=== PATIENT | male | born 1990 | race Caucasian/White ===

== ENCOUNTER 2021-01-27 19:42 | Emergency (ER) | payer MEDICAID, SELFPAY ==
--- NOTE | ~2021-01-27 | CT_ITS ---
EXAMINATION: CT ABDOMEN AND PELVIS WITH CONTRAST CLINICAL INFORMATION: Pancreatitis COMPARISON: None TECHNIQUE: Multidetector volumetric images were obtained from the superior aspect of the liver through the pubic symphysis following administration 85 mL of Omnipaque 350 intravenous contrast. Sagittal and coronal reformatted images were obtained on the technologist's workstation. Oral contrast: No This CT examination was performed using dose optimization techniques as appropriate, variously including the following: *Automated exposure control *Adjustment of mA and/or kV according to patient size (this includes techniques or standardized protocols for targeted exams where dose is matched to indication/reason for exam; i.e. extremities or head) *Use of iterative reconstruction technique DLP: 753 mGy-cm FINDINGS: LUNG BASES: The visualized lung bases are unremarkable. LIVER, GALLBLADDER, AND BILIARY TREE: Diffuse low attenuation of liver parenchyma due to fatty change. Mild hepatomegaly. Right lobe of liver measures 23 cm superior inferior. No focal liver lesion or intrahepatic bile duct dilatation. The gallbladder is unremarkable with no evidence of radiopaque gallstones, gallbladder wall thickening, or obvious pericholecystic inflammatory changes. PANCREAS: Unremarkable. SPLEEN: Unremarkable. ADRENAL GLANDS: Unremarkable. KIDNEYS AND URETERS: The kidneys are normal in size, shape, and attenuation. No hydronephrosis, hydroureter, or calculi seen. No perinephric stranding. 1.5 cm cortical cyst lower pole right kidney. No follow-up imaging is recommended for simple renal cyst. BLADDER: Unremarkable. GASTROINTESTINAL TRACT: The small and large bowel are unremarkable. The appendix is unremarkable. ABDOMINAL WALL: No significant hernia is appreciated. LYMPH NODES: Normal. VASCULAR: Unremarkable. PELVIC VISCERA: Unremarkable. OSSEOUS STRUCTURES: Unremarkable. CT/CT abdomen pelvis w con IMPRESSION: 1. No acute abnormality the abdomen or pelvis. 2. Mild hepatomegaly with diffuse fatty change of liver.
[2021-01-27 20:00] VITALS: BP 143/87; PULSE 89; RESP 20; TEMP 36.7; O2SAT 96; BMI 28.8
[2021-01-27 20:48] LABS: MANUAL DIFF FLAG NO
[2021-01-27 20:50] LABS: Basophils Percent Auto 0.4 % (0-2); Eosinophils Absolute Auto 0.1 X10*3/uL (0.0-0.4); Eosinophils Percent Auto 1.1 % (0-4); Hematocrit 46.3 % (42-52); Hemoglobin 16.8 g/dl (14.0-18.0); Imm Gran Abs Auto 0.03 X10*3/uL (0.00-0.03); Imm Gran Pct Auto 0.3 % (0.0-0.4); Lymphocytes Absolute Auto 3.4 X10*3/uL (1.2-4.9); Lymphocytes Percent Auto 31.1 % (20-40); Mean Corpuscular HGB Conc 36.3 g/dl (31.0-36.0); Mean Corpuscular Hemoglobin 29.8 pg (27.0-33.0); Mean Corpuscular Volume 82.2 fL (80-98); Mean Platelet Volume 9.4 fL (9.4-12.4); Monocytes Absolute Auto 0.7 X10*3/uL (0.1-1.2); Monocytes Percent Auto 6.8 % (2-11); Neutrophils Absolute Auto 6.5 X10*3/uL (2.0-8.3); Neutrophils Percent Auto 60.3 % (45-73); Platelet Count 275 X10*3/uL (160-400); Red Blood Count 5.63 X10*6/uL (4.60-5.80); Red Cell Distribution Width 11.7 % (11.0-16.0); White Blood Count 10.8 X10*3/uL (4.8-10.8)
[2021-01-27 20:52] LABS: Glucose Urine UA >=1000 MG/DL (NEG); Leukocyte Esterase Urine NEG (NEG); Nitrite Urine NEG (NEG); Specific Gravity - Urine <= 1.005 (1.005-1.025); Urine Blood NEG (NEG); Urine Ketones 15 MG/DL (NEG); Urine Protein NEG (NEG-TRACE)
[2021-01-27 20:53] LABS: Appearance Urine CLEAR; Color Urine STRAW
--- NOTE | 2021-01-27 21:17 | ED.GENADULT ---
HPI - General Adult General Chief complaint: General Medical Stated complaint: Weakness Time Seen by Provider: 01/27/21 21:17 Source: patient Mode of arrival: ambulatory Limitations: no limitations History of Present Illness HPI narrative: Patient with no significant past medical history for 1 week patient has been feeling nauseated ,vomiting frequently, feeling weak tired with frequent urination. No fever no chills no significant abdominal pain patient does have a family history of diabetes but patient never been diagnosed with diabetes ,patient is feeling tired and exhausted with malaise Related Data Allergies Allergy/AdvReac Type Severity Reaction Status Date / Time No Known Allergies Allergy Unverified 04/01/20 17:16 [No Known Allergies*] Review of Systems Review of Systems: Yes all other systems are reviewed and are negative [facility] Past Medical History Medical History No known health problems Social History Social History Advance Directives: No Advance Directives Information Provided: Yes Physical Exam Vital Signs: Vital Signs: Last Vital Signs Temp 98.0 F 01/27/21 20:00 Pulse 70 01/27/21 23:39 Resp 24 H 01/27/21 23:39 BP 147/83 H 01/27/21 23:39 Pulse Ox 97 01/27/21 23:39 Body Mass Index 28.8 Appearance: Alert. Oriented X3. No acute distress. Eyes: PERRLA, No Nystagmus ENT: Pharynx normal. Oral Mucosa moist Neck: Normal inspection. Neck supple. CVS: Normal heart rate and rhythm. Pulses normal. Respiratory: No respiratory distress. Equal air entry bilateral, no wheezing/rales/rhonchi Abdomen: Soft and nontender. Bowel sounds are present, no mass palpable, no CVA tenderness Skin: Skin warm and dry. Normal skin color. Normal skin turgor. Extremities: No lower extremity edema. No calf tenderness Neuro: Oriented X 3. No motor deficit. 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 Result diagrams: 01/27/21 20:44 01/28/21 00:12 Labs: Lab Results 01/27/21 01/27/21 01/27/21 Range/Units 20:41 20:44 20:44 WBC 10.8 (4.8-10.8) X10*3/uL RBC 5.63 (4.60-5.80) X10*6/uL Hgb 16.8 (14.0-18.0) g/dl Hct 46.3 (42-52) % MCV 82.2 (80-98) fL MCH 29.8 (27.0-33.0) pg MCHC 36.3 H (31.0-36.0) g/dl RDW 11.7 (11.0-16.0) % Plt Count 275 (160-400) X10*3/uL MPV 9.4 (9.4-12.4) fL Immature Gran % (Auto) 0.3 (0.0-0.4) % Neut % (Auto) 60.3 (45-73) % Lymph % (Auto) 31.1 (20-40) % [place] % (Auto) 6.8 (2-11) % Eos % (Auto) 1.1 (0-4) % Baso % (Auto) 0.4 (0-2) % Lymph # (Auto) 3.4 (1.2-4.9) X10*3/uL [place] # (Auto) 0.7 (0.1-1.2) X10*3/uL Eos # (Auto) 0.1 (0.0-0.4) X10*3/uL Baso # (Auto) 0.0 (0.0-0.2) X10*3/uL Abs Immat Gran (auto) 0.03 (0.00-0.03) X10*3/uL Absolute Neuts (auto) 6.5 (2.0-8.3) X10*3/uL Absolute Nucleated RBC 0.000 (0.0-0.012) X10*3/uL Nucleated RBC % (auto) 0.0 (0.0-0.2) /100WBC Sodium 129 L (135-145) mmol/L Potassium 4.0 (3.3-5.1) mmol/L Chloride 90 L (96-108) mmol/L Carbon Dioxide 23 (22-29) mmol/L Anion Gap 20 (12-20) BUN 8 L (9-16) mg/dL Creatinine 1.06 (0.5-1.4) mg/dL Estim Creat Clear Calc 106.8 Estimated GFR > 60 POC Glucose (60-115) mg/dL Random Glucose 572 H* (60-115) mg/dL Calcium 10.2 (8.4-10.2) mg/dL Total Bilirubin 0.7 (0.0-1.0) mg/dL Direct Bilirubin 0.3 (0.0-0.5) mg/dL AST 27 (5-37) U/L ALT 39 (0-40) U/L Alkaline Phosphatase 120 H (39-117) U/L Total Protein 8.1 H (6.5-8.0) g/dL Albumin 4.7 (3.5-5.0) g/dL Lipase 151 H (8-78) U/L Urine Color STRAW Urine Appearance CLEAR Urine pH 7.0 (5.0-8.0) Ur Specific [place] <= 1.005 (1.005-1.025) Urine Protein NEG (NEG-TRACE) MG/DL Urine Glucose (UA) >=1000 H (NEG) MG/DL Urine Ketones 15 (NEG) MG/DL Urine Blood NEG (NEG) Urine Nitrite NEG (NEG) Ur Leukocyte Esterase NEG (NEG) Urine RBC 0-2 (0) /HPF Urine WBC 0-2 (0-4) /HPF Ur Squamous Epith Cells NONE /LPF Urine Bacteria TRACE /LPF Acetone, Qual Negative (Negative) COVID-19 (GEMINI) (Negative) COVID-19 Clin Com 01/27/21 01/27/21 01/27/21 Range/Units 22:19 23:05 23:58 WBC (4.8-10.8) X10*3/uL RBC (4.60-5.80) X10*6/uL Hgb (14.0-18.0) g/dl Hct (42-52) % MCV (80-98) fL MCH (27.0-33.0) pg MCHC (31.0-36.0) g/dl RDW (11.0-16.0) % Plt Count (160-400) X10*3/uL MPV (9.4-12.4) fL Immature Gran % (Auto) (0.0-0.4) % Neut % (Auto) (45-73) % Lymph % (Auto) (20-40) % [place] % (Auto) (2-11) % Eos % (Auto) (0-4) % Baso % (Auto) (0-2) % Lymph # (Auto) (1.2-4.9) X10*3/uL [place] # (Auto) (0.1-1.2) X10*3/uL Eos # (Auto) (0.0-0.4) X10*3/uL Baso # (Auto) (0.0-0.2) X10*3/uL Abs Immat Gran (auto) (0.00-0.03) X10*3/uL Absolute Neuts (auto) (2.0-8.3) X10*3/uL Absolute Nucleated RBC (0.0-0.012) X10*3/uL Nucleated RBC % (auto) (0.0-0.2) /100WBC Sodium (135-145) mmol/L Potassium (3.3-5.1) mmol/L Chloride (96-108) mmol/L Carbon Dioxide (22-29) mmol/L Anion Gap (12-20) BUN (9-16) mg/dL Creatinine (0.5-1.4) mg/dL Estim Creat Clear Calc Estimated GFR POC Glucose 416 H* 334 H (60-115) mg/dL Random Glucose (60-115) mg/dL Calcium (8.4-10.2) mg/dL Total Bilirubin (0.0-1.0) mg/dL Direct Bilirubin (0.0-0.5) mg/dL AST (5-37) U/L ALT (0-40) U/L Alkaline Phosphatase (39-117) U/L Total Protein (6.5-8.0) g/dL Albumin (3.5-5.0) g/dL Lipase (8-78) U/L Urine Color Urine Appearance Urine pH (5.0-8.0) Ur Specific [place] (1.005-1.025) Urine Protein (NEG-TRACE) MG/DL Urine Glucose (UA) (NEG) MG/DL Urine Ketones (NEG) MG/DL Urine Blood (NEG) Urine Nitrite (NEG) Ur Leukocyte Esterase (NEG) Urine RBC (0) /HPF Urine WBC (0-4) /HPF Ur Squamous Epith Cells /LPF Urine Bacteria /LPF Acetone, Qual (Negative) COVID-19 (GEMINI) Negative (Negative) COVID-19 Clin Com See Note 01/28/21 Range/Units 00:12 WBC (4.8-10.8) X10*3/uL RBC (4.60-5.80) X10*6/uL Hgb (14.0-18.0) g/dl Hct (42-52) % MCV (80-98) fL MCH (27.0-33.0) pg MCHC (31.0-36.0) g/dl RDW (11.0-16.0) % Plt Count (160-400) X10*3/uL MPV (9.4-12.4) fL Immature Gran % (Auto) (0.0-0.4) % Neut % (Auto) (45-73) % Lymph % (Auto) (20-40) % [place] % (Auto) (2-11) % Eos % (Auto) (0-4) % Baso % (Auto) (0-2) % Lymph # (Auto) (1.2-4.9) X10*3/uL [place] # (Auto) (0.1-1.2) X10*3/uL Eos # (Auto) (0.0-0.4) X10*3/uL Baso # (Auto) (0.0-0.2) X10*3/uL Abs Immat Gran (auto) (0.00-0.03) X10*3/uL Absolute Neuts (auto) (2.0-8.3) X10*3/uL Absolute Nucleated RBC (0.0-0.012) X10*3/uL Nucleated RBC % (auto) (0.0-0.2) /100WBC Sodium 134 L (135-145) mmol/L Potassium 3.3 (3.3-5.1) mmol/L Chloride 98 (96-108) mmol/L Carbon Dioxide 23 (22-29) mmol/L Anion Gap 16 (12-20) BUN 7 L (9-16) mg/dL Creatinine 0.82 (0.5-1.4) mg/dL Estim Creat Clear Calc 136.8 Estimated GFR > 60 POC Glucose (60-115) mg/dL Random Glucose 332 H D (60-115) mg/dL Calcium 8.9 D (8.4-10.2) mg/dL Total Bilirubin (0.0-1.0) mg/dL Direct Bilirubin (0.0-0.5) mg/dL AST (5-37) U/L ALT (0-40) U/L Alkaline Phosphatase (39-117) U/L Total Protein (6.5-8.0) g/dL Albumin (3.5-5.0) g/dL Lipase (8-78) U/L Urine Color Urine Appearance Urine pH (5.0-8.0) Ur Specific [place] (1.005-1.025) Urine Protein (NEG-TRACE) MG/DL Urine Glucose (UA) (NEG) MG/DL Urine Ketones (NEG) MG/DL Urine Blood (NEG) Urine Nitrite (NEG) Ur Leukocyte Esterase (NEG) Urine RBC (0) /HPF Urine WBC (0-4) /HPF Ur Squamous Epith Cells /LPF Urine Bacteria /LPF Acetone, Qual Negative (Negative) COVID-19 (GEMINI) (Negative) COVID-19 Clin Com
[2021-01-27 21:22] LABS: Alanine Aminotransferase 39 U/L (0-40); Albumin Level 4.7 g/dL (3.5-5.0); Alkaline Phosphatase 120 U/L (39-117); Anion Gap 20 (12-20); Aspartate Amino Transferase 27 U/L (5-37); Bilirubin Direct 0.3 mg/dL (0.0-0.5); Bilirubin Total 0.7 mg/dL (0.0-1.0); Blood Urea Nitrogen 8 mg/dL (9-16); Calcium 10.2 mg/dL (8.4-10.2); Carbon Dioxide 23 mmol/L (22-29); Chloride 90 mmol/L (96-108); Creatinine Clr Calc Pharmacy 106.8; Estimated Glomerular Filt Rate > 60; Glucose Random 572 mg/dL (60-115); Sodium 129 mmol/L (135-145); Total Protein 8.1 g/dL (6.5-8.0)
[2021-01-27] MEDS: 0.9 % Sodium Chloride 1,000 ML 999 ML IVCONT ×2 (21:29→23:16)
[2021-01-27] MEDS: ondansetron HCL 4 MG/2 ML VIAL IVPUSH (21:32)
[2021-01-27 21:35] LABS: Lipase 151 U/L (8-78)
[2021-01-27 21:52] LABS: Bacteria Urine TRACE /LPF; RBC Urine 0-2 /HPF (0); WBC Urine 0-2 /HPF (0-4)
[2021-01-27 22:44] LABS: COVID-19 Test Negative (Negative)
[2021-01-27 23:09] LABS: Glucose, Whole Blood 416 mg/dL (60-115)
[2021-01-27 23:12] LABS: Acetone, serum QL Negative (Negative)
[2021-01-27] MEDS: Insulin Lispro 100 UNIT/ML 3 ML VIAL 14 UNIT SUBCUT (23:16)
[2021-01-27 23:39] VITALS: BP 147/83; PULSE 70; RESP 24; O2SAT 97
[2021-01-28 00:03] LABS: Glucose, Whole Blood 334 mg/dL (60-115)
[2021-01-28 00:32] LABS: Acetone, serum QL Negative (Negative)
[2021-01-28 00:40] LABS: Anion Gap 16 (12-20); Blood Urea Nitrogen 7 mg/dL (9-16); Calcium 8.9 mg/dL (8.4-10.2); Carbon Dioxide 23 mmol/L (22-29); Chloride 98 mmol/L (96-108); Creatinine Clr Calc Pharmacy 136.8; Estimated Glomerular Filt Rate > 60; Glucose Random 332 mg/dL (60-115); Potassium 3.3 mmol/L (3.3-5.1); Sodium 134 mmol/L (135-145)
[2021-01-28] MEDS: metFORMIN HCl 1,000 MG TABLET 1000 MG PO (01:17)
== END 2021-01-28 01:31 | disposition home or self-care (01) ==
PROVIDERS: Emergency Provider Internal Medicine
DX: E11.9 Type 2 diabetes mellitus without complications (principal); Z20.822 Contact with and (suspected) exposure to COVID-19
CPT/HCPCS: 36415; 74177; 80048; 80076; 81001; 82009; 82947; 83690; 85025; 87635; 96361; 96374; 99284; J2405

== ENCOUNTER 2022-09-13 14:11 | Inpatient (IN) | payer MEDICAID, SELFPAY ==
--- NOTE | ~2022-09-13 | CT_ITS ---
EXAMINATION: CT MAXILLOFACIAL WITH CONTRAST CLINICAL INFORMATION: Facial swelling. COMPARISON: None available. TECHNIQUE: Multidetector helical imaging was performed in the axial plane without and following the administration of 85 mL of Omnipaque 350 intravenous contrast. Generation of coronal and sagittal reformatted images. This CT examination was performed using dose optimization techniques as appropriate, variously including the following: *Automated exposure control *Adjustment of mA and/or kV according to patient size (this includes techniques or standardized protocols for targeted exams where dose is matched to indication/reason for exam; i.e. extremities or head) *Use of iterative reconstruction technique DLP: 895 mGy-cm FINDINGS: FRONTAL SINUSES AND DRAINAGE PATHWAYS: The frontal sinuses are clear. The frontoethmoidal recesses are patent. MAXILLARY SINUSES AND DRAINAGE PATHWAYS: Mild mucosal thickening of atelectatic right maxillary sinus. Minimal mucosal thickening of the left maxillary sinus.. The maxillary ostia and infundibula are patent. ETHMOID SINUSES: Mild mucosal thickening of ethmoid air cells. The ethmoid roofs appear symmetric and intact. SPHENOID SINUS AND DRAINAGE PATHWAYS: The sphenoid sinus is clear. Changes of arrested pneumatization of the sphenoid base. The sphenoethmoidal recesses are patent. The carotid canals are normally covered by bone. NASAL PASSAGE: Mild mucosal thickening of the nasal passage. Moderate leftward nasal septal deviation. Dehiscence of the cartilaginous nasal septum. ORBITS: Normal appearance of the osseous orbits. The lamina papyracea are intact. No significant preseptal or retrobulbar edema. Normal appearance of the globes. Normal symmetric appearance of the extraocular musculature. No abnormalities of the intraconal or extraconal adipose tissue. Normal appearance of the optic nerve sheaths. Normal appearance of the lacrimal glands. No orbital fluid collections. No abnormalities of the orbital apices. TEMPOROMANDIBULAR JOINTS: The temporomandibular joints remain well aligned. Normal appearance of the temporomandibular joints. ADDITIONAL RELEVANT FINDINGS: Multifocal maxillary and mandibular odontogenic enamel erosions with periapical lucencies associated with the mandibular right 2nd premolar and 1st molar. There is an adjacent peripherally enhancing fluid collection along the vertebral the right body of the mandible, measuring up to 1 x 0.3 cm. Moderate surrounding subcutaneous edema throughout the right side of face extending into the right anterior neck. Moderate edematous thickening of the right aspect of the platysma muscle. No additional drainable fluid collection within the deep soft tissues moderately prominent rounded right level Ia lymph nodes measuring up to 1 cm, right level Ib lymph nodes measuring up to 2 cm, right level IIa lymph nodes measuring up to 1.7 cm, and right level III lymph nodes measuring up to 1.2 cm. No evidence of maxillofacial bone fractures. The zygomatic arches remain intact. No nasal bone fracture. No evidence of mandibular or maxillary fracture. The visualized mastoid air cells and middle ear cavities remain well aerated. Limited evaluation of the intracranial structures without significant abnormalities. Straightening of the normal cervical lordosis. Mild degenerative anterolisthesis of C3 on C4. Moderate degenerative disc disease from C3-C7. The premaxillary, retromaxillary, pterygopalatine fossa, temporal fossa, parapharyngeal, and prelaryngeal adipose tissue is maintained. No demonstrated soft tissue abnormalities within the intrinsic tissues of the tongue. CT/CT facial bones w IV con IMPRESSION: 1. Multifocal maxillary and mandibular odontogenic disease. Periapical lucencies associated with the mandibular right 2nd premolar and 1st molar. There is an adjacent 1 x 0.3 cm abscess along the outer table of the right mandibular body. Moderate surrounding soft tissue edema throughout the right side of face extending into the right anterior neck. 2. Prominent right upper cervical chain lymphadenopathy, likely reactive in nature. 3. Dehiscence of the cartilaginous nasal septum. Moderate leftward nasal septal deviation.
[2022-09-13 14:57] VITALS: BP 158/90; PULSE 75; RESP 18; TEMP 36.4; O2SAT 98; BMI 35.7
--- NOTE | 2022-09-13 15:00 | ED.GENADULT ---
HPI - General Adult General Chief complaint: Dental/Oral <Jose A Allen - Last Filed: 09/13/22 15:01> Stated complaint: Dental pain/Facial swelling <Jose A Allen - Last Filed: 09/13/22 15:01> Time Seen by Provider: 09/13/22 20:37 <Jose A Allen - Last Filed: 09/13/22 15:01> Source: patient <Kate Partida NP - Last Filed: 09/14/22 01:36> Mode of arrival: ambulatory <Kate Partida NP - Last Filed: 09/14/22 01:36> Limitations: no limitations <Kate Partida NP - Last Filed: 09/14/22 01:36> History of Present Illness HPI narrative: 32-year-old male presents with right lower tooth, right facial swelling with difficulty swallowing. He states to have poor dentition, started off with a toothache and then progressively worsened. He is able to manage secretions and open his mouth. He does not report any difficulty breathing. <Kate Partida NP - Last Filed: 09/14/22 01:36> Onset (ago): day(s) (5) <Kate Partida NP - Last Filed: 09/14/22 01:36> Location: face and mouth <Kate Partida NP - Last Filed: 09/14/22 01:36> Severity: severe <Kate Partida NP - Last Filed: 09/14/22 01:36> Severity scale (1-10): 10 <Kate Partida NP - Last Filed: 09/14/22 01:36> Quality: aching <Kate Partida NP - Last Filed: 09/14/22 01:36> Pain Consistency: constant <Kate Partida NP - Last Filed: 09/14/22 01:36> Relieving factors: none <Kate Partida NP - Last Filed: 09/14/22 01:36> Exacerbating factors: eating and movement <Kate Partida NP - Last Filed: 09/14/22 01:36> Associated symptoms: fever/chills <Kate Partida NP - Last Filed: 09/14/22 01:36> Treatments prior to arrival: none <Kate Partida NP - Last Filed: 09/14/22 01:36> Related Data Home medications: Previous Rx's Medication Instructions Recorded metformin 850 mg tablet 850 mg PO BID #60 tabs 01/28/21 <Jose A Allen - Last Filed: 09/13/22 15:01> Allergies/adverse reactions: Allergies Allergy/AdvReac Type Severity Reaction Status Date / Time No Known Allergies Allergy Verified 09/13/22 14:57 [No Known Allergies*] <Jose A Allen - Last Filed: 09/13/22 15:01> Review of Systems Review of Systems: Constitutional: No Fever, positive Chills ENT/Mouth: Positive jaw pain, positive facial swelling, No Ear Pain, No Hoarseness, No sore throat Eyes: No Eye Pain, No Swelling, No Redness, No Foreign Body Cardiovascular: No Chest Pain, No SOB Respiratory: No Cough, No Dyspnea Gastrointestinal: No Nausea, No Vomiting, No Diarrhea, No abdominal Pain Genitourinary: No Dysuria, No Hematuria Musculoskeletal: positive jaw pain, No Myalgias, No Joint Swelling Skin: No Skin lacerations, No rash Neuro: No Weakness, No Dizziness, No Headache <Kate Partida NP - Last Filed: 09/14/22 01:36> Yes all other systems are reviewed and are negative <Kate Partida NP - Last Filed: 09/14/22 01:36> PMFSH Past Medical History Attestation statement: The following information was validated with the patient. <Kate Partida NP - Last Filed: 09/14/22 01:36> Source: old records reviewed <Kate Partida NP - Last Filed: 09/14/22 01:36> Medical History: Medical History No known health problems <Jose A Allen - Last Filed: 09/13/22 15:01> Social History Social History: Social History Advance Directives: No Advance Directives Information Provided: No <Jose A Allen - Last Filed: 09/13/22 15:01> Physical Exam ED Vital Signs: Vital Signs - 24 hr 09/13/22 14:57 09/13/22 20:44 09/14/22 00:02 Temperature 97.6 F 99.4 F Pulse Rate 75 81 74 Respiratory Rate 18 20 20 Blood Pressure 158/90 H 139/84 137/74 Pulse Oximetry 98 96 98 Oxygen Delivery Method Room Air Room Air Room Air BMI result Body Mass Index 35.7 <Jose A Allen - Last Filed: 09/13/22 15:01> Vital Signs - 24 hr 09/13/22 14:57 09/13/22 20:44 09/14/22 00:02 Temperature 97.6 F 99.4 F Pulse Rate 75 81 74 Respiratory Rate 18 20 20 Blood Pressure 158/90 H 139/84 137/74 Pulse Oximetry 98 96 98 Oxygen Delivery Method Room Air Room Air Room Air BMI result Body Mass Index 35.7 <Kate Partida NP - Last Filed: 09/14/22 01:36> Vital Signs - 24 hr 09/13/22 14:57 09/13/22 20:44 09/14/22 00:02 Temperature 97.6 F 99.4 F Pulse Rate 75 81 74 Respiratory Rate 18 20 20 Blood Pressure 158/90 H 139/84 137/74 Pulse Oximetry 98 96 98 Oxygen Delivery Method Room Air Room Air Room Air BMI result Body Mass Index 35.7 <Chito Baeza MD - Last Filed: 09/14/22 02:17> Appearance: Alert. Oriented X3. moderate distress. Eyes: Pupils equal, round and reactive to light. ENT: Pharynx normal. Neck: Normal inspection. Neck supple. right-sided cervical Lymphadenopathy noted. CVS: Normal heart rate and rhythm. Pulses normal. Respiratory: No respiratory distress. Breath sounds normal. Skin: Skin warm and dry. Normal skin color. Extremities: No lower extremity edema. Gait balance And coordinated Neuro: No motor deficit. No sensory deficit. cranial nerves 2-12 intact. <Kate Partida NP - Last Filed: 09/14/22 01:36> Course Course Course Narrative: RME- 32-year-old male past medical history significant for diabetes presents for evaluation of right facial swelling. Patient reports that he has a broken right lower tooth that has been bothering him off for quite some time. He reports yesterday it started to swell and this morning was significantly more swollen. On exam he has a markedly edematous right cheek and possible dental abscess. Will check labs. Patient is afebrile, retropharynx is widely patent <Jose A Allen - Last Filed: 09/13/22 15:01> RME- 32-year-old male past medical history significant for diabetes presents for evaluation of right facial swelling. Patient reports that he has a broken right lower tooth that has been bothering him off for quite some time. He reports yesterday it started to swell and this morning was significantly more swollen. On exam he has a markedly edematous right cheek and possible dental abscess. Will check labs. Patient is afebrile, retropharynx is widely patent 20:30 32-year-old male presents with right-sided lower jaw pain and facial swelling for about 5 days. States that he has intermittent chills but no measured fevers. He is having a difficult time swallowing because pain, is able to open and close his mouth. There is significant swelling to the left zygomatic process down to his lower lip. Multiple dental caries noted. Right-sided cervical lymphadenopathy with mastoid tenderness noted. No indication of peritonsillar abscess or epiglottitis. On palpation I do not feel any fluctuance. Will order clindamycin IV, CT facial bones with contrast, lactic and cultures. Pain management with Toradol, patient is on methadone. Patient's white count is 12.0, vital signs are within normal limits with an elevated blood pressure 158/90. High suspicion for dental abscess versus osteomyelitis of the jaw. Low likelihood to be angioedema as it is right-sided and patient is not on any medications with risk for angioedema. No indication of Tomás's angina. Airway is patent. No tracheal stridor. No vertebral tenderness or step-offs. No nuchal rigidity. PERRLA. No extraocular pain on movement. 21:32 lactic acid 3.6. Will call sepsis at this time. Fluid resuscitation at [address] scan pending. 00:36 CT scan Still pending. 2nd culture pending. Patient is sleeping. Even unlabored respirations. Easily arousable with verbal stimulus. 01:02 CT scan still pending. Second lactic is 2.9. Patient sleeping. Even unlabored respirations. 01:21 CT scan still pending. 01:30 CT scan indicates small right mandibular abscess with cellulitis. Sign-out to Dr. Simon, Dr. Simon will attempt to drain the very small dental abscess and then admit for cellulitis. <Kate Partida NP - Last Filed: 09/14/22 01:36> Medications Administered Discontinued Medications Generic Name Dose Route Start Last Admin Trade Name Freq PRN Reason Stop Dose Admin Clindamycin Phosphate 600 mg in 50 mls @ 100 mls/hr 09/13/22 20:47 09/13/22 21:31 Cleocin IV 09/13/22 21:16 Infused ONCE ONE Infusion Sodium Chloride 3,197.82 mls @ 3,197.82 mls/hr 09/13/22 21:33 09/13/22 21:36 Ns 30 ml/kg infuse over 1 hr (3197.82 ml) 09/13/22 22:32 3,197.82 mls/hr IV Administration .Q1H STA Iohexol 100 ml 09/13/22 22:08 09/13/22 22:09 Iohexol 350 Mg/Ml 100 Ml Infus..Btl IV 09/13/22 22:09 85 ml ONCE ONE Administration Ketorolac Tromethamine 30 mg 09/13/22 20:49 09/13/22 20:55 Ketorolac Tromethamine 30 Mg/Ml Vial IVPUSH 09/13/22 20:50 30 mg ONCE ONE Administration <Jose A Allen - Last Filed: 09/13/22 15:01> Medications Administered Discontinued Medications Generic Name Dose Route Start Last Admin Trade Name Freq PRN Reason Stop Dose Admin Clindamycin Phosphate 600 mg in 50 mls @ 100 mls/hr 09/13/22 20:47 09/13/22 21:31 Cleocin IV 09/13/22 21:16 Infused ONCE ONE Infusion Sodium Chloride 3,197.82 mls @ 3,197.82 mls/hr 09/13/22 21:33 09/13/22 21:36 Ns 30 ml/kg infuse over 1 hr (3197.82 ml) 09/13/22 22:32 3,197.82 mls/hr IV Administration .Q1H STA Iohexol 100 ml 09/13/22 22:08 09/13/22 22:09 Iohexol 350 Mg/Ml 100 Ml Infus..Btl IV 09/13/22 22:09 85 ml ONCE ONE Administration Ketorolac Tromethamine 30 mg 09/13/22 20:49 09/13/22 20:55 Ketorolac Tromethamine 30 Mg/Ml Vial IVPUSH 09/13/22 20:50 30 mg ONCE ONE Administration <Kate Partida NP - Last Filed: 09/14/22 01:36> Medications Administered Discontinued Medications Generic Name Dose Route Start Last Admin Trade Name Freq PRN Reason Stop Dose Admin Clindamycin Phosphate 600 mg in 50 mls @ 100 mls/hr 09/13/22 20:47 09/13/22 21:31 Cleocin IV 09/13/22 21:16 Infused ONCE ONE Infusion Sodium Chloride 3,197.82 mls @ 3,197.82 mls/hr 09/13/22 21:33 09/13/22 21:36 Ns 30 ml/kg infuse over 1 hr (3197.82 ml) 09/13/22 22:32 3,197.82 mls/hr IV Administration .Q1H STA Iohexol 100 ml 09/13/22 22:08 09/13/22 22:09 Iohexol 350 Mg/Ml 100 Ml Infus..Btl IV 09/13/22 22:09 85 ml ONCE ONE Administration Ketorolac Tromethamine 30 mg 09/13/22 20:49 09/13/22 20:55 Ketorolac Tromethamine 30 Mg/Ml Vial IVPUSH 09/13/22 20:50 30 mg ONCE ONE Administration <Chito Baeza MD - Last Filed: 09/14/22 02:17> Procedures Abscess I/D Site: other (Mandibular) <Chito Baeza MD - Last Filed: 09/14/22 02:17> Side (if applicable): right <Chito Baeza MD - Last Filed: 09/14/22 02:17> Local Anesthetic: lidocaine 2% and with epi <Chito Baeza MD - Last Filed: 09/14/22 02:17> Amount of anesthesia used (mL): 3 <Chito Baeza MD - Last Filed: 09/14/22 02:17> Technique: needle aspiration <Chito Baeza MD - Last Filed: 09/14/22 02:17> Amount of fluid expressed (mL): 0.5 <Chito Baeza MD - Last Filed: 09/14/22 02:17> Sent for culture/gram staining?: No <Chito Baeza MD - Last Filed: 09/14/22 02:17> Medical Decision Making Differential Diagnosis Differential Diagnoses: The differential diagnosis associated with the presentation includes <Kate Partida NP - Last Filed: 09/14/22 01:36> Facial cellulitis, dental abscess <Kate Partida NP - Last Filed: 09/14/22 01:36> Admission/Observation Consideration of admission/observation: Escalation of care including admission/observation considered <Kate Partida NP - Last Filed: 09/14/22 01:36> patient will be admitted <Kate Partida NP - Last Filed: 09/14/22 01:36> Consult Healthcare Provider Management of the patient was discussed with: Hospitalist <Kate Partida NP - Last Filed: 09/14/22 01:36> Lab Data MDM Lab Attestation statement: I reviewed the patient's lab results. <Kate Partida NP - Last Filed: 09/14/22 01:36> Result Diagrams: 09/13/22 15:46 09/13/22 15:46 <Jose A Allen - Last Filed: 09/13/22 15:01> Labs: Lab Results 09/13/22 09/13/22 09/13/22 Range/Units 15:46 15:46 20:50 WBC 12.0 H (4.8-10.8) X10*3/uL RBC 4.90 (4.60-5.80) X10*6/uL Hgb 14.8 (14.0-18.0) g/dl Hct 42.5 (42.0-52.0) % MCV 86.7 (80.0-98.0) fL MCH 30.2 (27.0-33.0) pg MCHC 34.8 (31.0-36.0) g/dl RDW 12.9 (11.0-16.0) % Plt Count 205 (160-400) X10*3/uL MPV 9.2 L (9.4-12.4) fL Immature Gran % (Auto) 0.6 H (0.0-0.4) % Neut % (Auto) 70.5 (45-73) % Lymph % (Auto) 20.3 (20-40) % Parker % (Auto) 7.3 (2-11) % Eos % (Auto) 1.0 (0-4) % Baso % (Auto) 0.3 (0-2) % Lymph # (Auto) 2.5 (1.2-4.9) X10*3/uL Parker # (Auto) 0.9 (0.1-1.2) X10*3/uL Eos # (Auto) 0.1 (0.0-0.4) X10*3/uL Baso # (Auto) 0.0 (0.0-0.2) X10*3/uL Abs Immat Gran (auto) 0.07 H (0.00-0.03) X10*3/uL Absolute Neuts (auto) 8.5 H (2.0-8.3) x10*3/uL Absolute Nucleated RBC 0.000 (0.0-0.012) X10*3/uL Nucleated RBC % (auto) 0.0 (0.0-0.2) /100WBC Sodium 142 (135-145) mmol/L Potassium 4.2 D (3.3-5.1) mmol/L Chloride 101 (96-108) mmol/L Carbon Dioxide 29 (22-29) mmol/L Anion Gap 16 (12-20) BUN 8 L (9-16) mg/dL Creatinine 0.72 (0.5-1.4) mg/dL Estim Creat Clear Calc 171.1 Estimated GFR > 60 Random Glucose 119 H (60-115) mg/dL Lactic Acid 3.6 H* (0.5-2.0) mmol/L Lactic Acid F/U @ 2Hr (0.5-2.0) mmol/L Calcium 9.5 D (8.4-10.2) mg/dL 09/14/22 Range/Units 00:06 WBC (4.8-10.8) X10*3/uL RBC (4.60-5.80) X10*6/uL Hgb (14.0-18.0) g/dl Hct (42.0-52.0) % MCV (80.0-98.0) fL MCH (27.0-33.0) pg MCHC (31.0-36.0) g/dl RDW (11.0-16.0) % Plt Count (160-400) X10*3/uL MPV (9.4-12.4) fL Immature Gran % (Auto) (0.0-0.4) % Neut % (Auto) (45-73) % Lymph % (Auto) (20-40) % Parker % (Auto) (2-11) % Eos % (Auto) (0-4) % Baso % (Auto) (0-2) % Lymph # (Auto) (1.2-4.9) X10*3/uL Parker # (Auto) (0.1-1.2) X10*3/uL Eos # (Auto) (0.0-0.4) X10*3/uL Baso # (Auto) (0.0-0.2) X10*3/uL Abs Immat Gran (auto) (0.00-0.03) X10*3/uL Absolute Neuts (auto) (2.0-8.3) x10*3/uL Absolute Nucleated RBC (0.0-0.012) X10*3/uL Nucleated RBC % (auto) (0.0-0.2) /100WBC Sodium (135-145) mmol/L Potassium (3.3-5.1) mmol/L Chloride (96-108) mmol/L Carbon Dioxide (22-29) mmol/L Anion Gap (12-20) BUN (9-16) mg/dL Creatinine (0.5-1.4) mg/dL Estim Creat Clear Calc Estimated GFR Random Glucose (60-115) mg/dL Lactic Acid (0.5-2.0) mmol/L Lactic Acid F/U @ 2Hr 2.9 H* (0.5-2.0) mmol/L Calcium (8.4-10.2) mg/dL <Jose A Allen - Last Filed: 09/13/22 15:01> Lab Results 09/13/22 09/13/22 09/13/22 Range/Units 15:46 15:46 20:50 WBC 12.0 H (4.8-10.8) X10*3/uL RBC 4.90 (4.60-5.80) X10*6/uL Hgb 14.8 (14.0-18.0) g/dl Hct 42.5 (42.0-52.0) % MCV 86.7 (80.0-98.0) fL MCH 30.2 (27.0-33.0) pg MCHC 34.8 (31.0-36.0) g/dl RDW 12.9 (11.0-16.0) % Plt Count 205 (160-400) X10*3/uL MPV 9.2 L (9.4-12.4) fL Immature Gran % (Auto) 0.6 H (0.0-0.4) % Neut % (Auto) 70.5 (45-73) % Lymph % (Auto) 20.3 (20-40) % Parker % (Auto) 7.3 (2-11) % Eos % (Auto) 1.0 (0-4) % Baso % (Auto) 0.3 (0-2) % Lymph # (Auto) 2.5 (1.2-4.9) X10*3/uL Parker # (Auto) 0.9 (0.1-1.2) X10*3/uL Eos # (Auto) 0.1 (0.0-0.4) X10*3/uL Baso # (Auto) 0.0 (0.0-0.2) X10*3/uL Abs Immat Gran (auto) 0.07 H (0.00-0.03) X10*3/uL Absolute Neuts (auto) 8.5 H (2.0-8.3) x10*3/uL Absolute Nucleated RBC 0.000 (0.0-0.012) X10*3/uL Nucleated RBC % (auto) 0.0 (0.0-0.2) /100WBC Sodium 142 (135-145) mmol/L Potassium 4.2 D (3.3-5.1) mmol/L Chloride 101 (96-108) mmol/L Carbon Dioxide 29 (22-29) mmol/L Anion Gap 16 (12-20) BUN 8 L (9-16) mg/dL Creatinine 0.72 (0.5-1.4) mg/dL Estim Creat Clear Calc 171.1 Estimated GFR > 60 Random Glucose 119 H (60-115) mg/dL Lactic Acid 3.6 H* (0.5-2.0) mmol/L Lactic Acid F/U @ 2Hr (0.5-2.0) mmol/L Calcium 9.5 D (8.4-10.2) mg/dL 09/14/22 Range/Units 00:06 WBC (4.8-10.8) X10*3/uL RBC (4.60-5.80) X10*6/uL Hgb (14.0-18.0) g/dl Hct (42.0-52.0) % MCV (80.0-98.0) fL MCH (27.0-33.0) pg MCHC (31.0-36.0) g/dl RDW (11.0-16.0) % Plt Count (160-400) X10*3/uL MPV (9.4-12.4) fL Immature Gran % (Auto) (0.0-0.4) % Neut % (Auto) (45-73) % Lymph % (Auto) (20-40) % Parker % (Auto) (2-11) % Eos % (Auto) (0-4) % Baso % (Auto) (0-2) % Lymph # (Auto) (1.2-4.9) X10*3/uL Parker # (Auto) (0.1-1.2) X10*3/uL Eos # (Auto) (0.0-0.4) X10*3/uL Baso # (Auto) (0.0-0.2) X10*3/uL Abs Immat Gran (auto) (0.00-0.03) X10*3/uL Absolute Neuts (auto) (2.0-8.3) x10*3/uL Absolute Nucleated RBC (0.0-0.012) X10*3/uL Nucleated RBC % (auto) (0.0-0.2) /100WBC Sodium (135-145) mmol/L Potassium (3.3-5.1) mmol/L Chloride (96-108) mmol/L Carbon Dioxide (22-29) mmol/L Anion Gap (12-20) BUN (9-16) mg/dL Creatinine (0.5-1.4) mg/dL Estim Creat Clear Calc Estimated GFR Random Glucose (60-115) mg/dL Lactic Acid (0.5-2.0) mmol/L Lactic Acid F/U @ 2Hr 2.9 H* (0.5-2.0) mmol/L Calcium (8.4-10.2) mg/dL <Kate Partida NP - Last Filed: 09/14/22 01:36> Lab Results 09/13/22 09/13/22 09/13/22 Range/Units 15:46 15:46 20:50 WBC 12.0 H (4.8-10.8) X10*3/uL RBC 4.90 (4.60-5.80) X10*6/uL Hgb 14.8 (14.0-18.0) g/dl Hct 42.5 (42.0-52.0) % MCV 86.7 (80.0-98.0) fL MCH 30.2 (27.0-33.0) pg MCHC 34.8 (31.0-36.0) g/dl RDW 12.9 (11.0-16.0) % Plt Count 205 (160-400) X10*3/uL MPV 9.2 L (9.4-12.4) fL Immature Gran % (Auto) 0.6 H (0.0-0.4) % Neut % (Auto) 70.5 (45-73) % Lymph % (Auto) 20.3 (20-40) % Parker % (Auto) 7.3 (2-11) % Eos % (Auto) 1.0 (0-4) % Baso % (Auto) 0.3 (0-2) % Lymph # (Auto) 2.5 (1.2-4.9) X10*3/uL Parker # (Auto) 0.9 (0.1-1.2) X10*3/uL Eos # (Auto) 0.1 (0.0-0.4) X10*3/uL Baso # (Auto) 0.0 (0.0-0.2) X10*3/uL Abs Immat Gran (auto) 0.07 H (0.00-0.03) X10*3/uL Absolute Neuts (auto) 8.5 H (2.0-8.3) x10*3/uL Absolute Nucleated RBC 0.000 (0.0-0.012) X10*3/uL Nucleated RBC % (auto) 0.0 (0.0-0.2) /100WBC Sodium 142 (135-145) mmol/L Potassium 4.2 D (3.3-5.1) mmol/L Chloride 101 (96-108) mmol/L Carbon Dioxide 29 (22-29) mmol/L Anion Gap 16 (12-20) BUN 8 L (9-16) mg/dL Creatinine 0.72 (0.5-1.4) mg/dL Estim Creat Clear Calc 171.1 Estimated GFR > 60 Random Glucose 119 H (60-115) mg/dL Lactic Acid 3.6 H* (0.5-2.0) mmol/L Lactic Acid F/U @ 2Hr (0.5-2.0) mmol/L Calcium 9.5 D (8.4-10.2) mg/dL 09/14/22 Range/Units 00:06 WBC (4.8-10.8) X10*3/uL RBC (4.60-5.80) X10*6/uL Hgb (14.0-18.0) g/dl Hct (42.0-52.0) % MCV (80.0-98.0) fL MCH (27.0-33.0) pg MCHC (31.0-36.0) g/dl RDW (11.0-16.0) % Plt Count (160-400) X10*3/uL MPV (9.4-12.4) fL Immature Gran % (Auto) (0.0-0.4) % Neut % (Auto) (45-73) % Lymph % (Auto) (20-40) % Parker % (Auto) (2-11) % Eos % (Auto) (0-4) % Baso % (Auto) (0-2) % Lymph # (Auto) (1.2-4.9) X10*3/uL Parker # (Auto) (0.1-1.2) X10*3/uL Eos # (Auto) (0.0-0.4) X10*3/uL Baso # (Auto) (0.0-0.2) X10*3/uL Abs Immat Gran (auto) (0.00-0.03) X10*3/uL Absolute Neuts (auto) (2.0-8.3) x10*3/uL Absolute Nucleated RBC (0.0-0.012) X10*3/uL Nucleated RBC % (auto) (0.0-0.2) /100WBC Sodium (135-145) mmol/L Potassium (3.3-5.1) mmol/L Chloride (96-108) mmol/L Carbon Dioxide (22-29) mmol/L Anion Gap (12-20) BUN (9-16) mg/dL Creatinine (0.5-1.4) mg/dL Estim Creat Clear Calc Estimated GFR Random Glucose (60-115) mg/dL Lactic Acid (0.5-2.0) mmol/L Lactic Acid F/U @ 2Hr 2.9 H* (0.5-2.0) mmol/L Calcium (8.4-10.2) mg/dL <Chito Baeza MD - Last Filed: 09/14/22 02:17> Independent Interpretation I performed an independent interpretation of an: CT Scan <Kate Partida NP - Last Filed: 09/14/22 01:36> Radiology Impression Discussion of test interpretation with radiology: I have reviewed the radiologist's reading. <Kate Partida NP - Last Filed: 09/14/22 01:36> Radiologist Impression: EXAMINATION: CT MAXILLOFACIAL WITH CONTRAST CLINICAL INFORMATION: Facial swelling. COMPARISON: None available. TECHNIQUE: Multidetector helical imaging was performed in the axial plane without and following the administration of 85 mL of Omnipaque 350 intravenous contrast. Generation of coronal and sagittal reformatted images. This CT examination was performed using dose optimization techniques as appropriate, variously including the following: *Automated exposure control *Adjustment of mA and/or kV according to patient size (this includes techniques or standardized protocols for targeted exams where dose is matched to indication/reason for exam; i.e. extremities or head) *Use of iterative reconstruction technique DLP: 895 mGy-cm FINDINGS: FRONTAL SINUSES AND DRAINAGE PATHWAYS: The frontal sinuses are clear. The frontoethmoidal recesses are patent. MAXILLARY SINUSES AND DRAINAGE PATHWAYS: Mild mucosal thickening of atelectatic right maxillary sinus. Minimal mucosal thickening of the left maxillary sinus.. The maxillary ostia and infundibula are patent. ETHMOID SINUSES: Mild mucosal thickening of ethmoid air cells. The ethmoid roofs appear symmetric and intact. SPHENOID SINUS AND DRAINAGE PATHWAYS: The sphenoid sinus is clear. Changes of arrested pneumatization of the sphenoid base. The sphenoethmoidal recesses are patent. The carotid canals are normally covered by bone. NASAL PASSAGE: Mild mucosal thickening of the nasal passage. Moderate leftward nasal septal deviation. Dehiscence of the cartilaginous nasal septum. ORBITS: Normal appearance of the osseous orbits. The lamina papyracea are intact. No significant preseptal or retrobulbar edema. Normal appearance of the globes. Normal symmetric appearance of the extraocular musculature. No abnormalities of the intraconal or extraconal adipose tissue. Normal appearance of the optic nerve sheaths. Normal appearance of the lacrimal glands. No orbital fluid collections. No abnormalities of the orbital apices. TEMPOROMANDIBULAR JOINTS: The temporomandibular joints remain well aligned. Normal appearance of the temporomandibular joints. ADDITIONAL RELEVANT FINDINGS: Multifocal maxillary and mandibular odontogenic enamel erosions with periapical lucencies associated with the mandibular right 2nd premolar and 1st molar. There is an adjacent peripherally enhancing fluid collection along the vertebral the right body of the mandible, measuring up to 1 x 0.3 cm. Moderate surrounding subcutaneous edema throughout the right side of face extending into the right anterior neck. Moderate edematous thickening of the right aspect of the platysma muscle. No additional drainable fluid collection within the deep soft tissues moderately prominent rounded right level Ia lymph nodes measuring up to 1 cm, right level Ib lymph nodes measuring up to 2 cm, right level IIa lymph nodes measuring up to 1.7 cm, and right level III lymph nodes measuring up to 1.2 cm. No evidence of maxillofacial bone fractures. The zygomatic arches remain intact. No nasal bone fracture. No evidence of mandibular or maxillary fracture. The visualized mastoid air cells and middle ear cavities remain well aerated. Limited evaluation of the intracranial structures without significant abnormalities. Straightening of the normal cervical lordosis. Mild degenerative anterolisthesis of C3 on C4. Moderate degenerative disc disease from C3-C7. The premaxillary, retromaxillary, pterygopalatine fossa, temporal fossa, parapharyngeal, and prelaryngeal adipose tissue is maintained. No demonstrated soft tissue abnormalities within the intrinsic tissues of the tongue. CT/CT facial bones w IV con IMPRESSION: 1.? Multifocal maxillary and mandibular odontogenic disease. Periapical lucencies associated with the mandibular right 2nd premolar and 1st molar. There is an adjacent 1 x 0.3 cm abscess along the outer table of the right mandibular body. Moderate surrounding soft tissue edema throughout the right side of face extending into the right anterior neck. 2.? Prominent right upper cervical chain lymphadenopathy, likely reactive in nature. 3.? Dehiscence of the cartilaginous nasal septum. Moderate leftward nasal septal deviation. ? <DAT Snachez Last Filed: 09/14/22 01:36> External Record Review External record reviewed: Outpatient record and Prior outpatient labs <DAT Sanchez Last Filed: 09/14/22 01:36> Prescription Management I considered prescription management with: Pain Medication and Antibiotic <DAT Sanchez Last Filed: 09/14/22 01:36> Chronic Conditions Patient?s care impacted by: Diabetes <DAT Sanchez Last Filed: 09/14/22 01:36> Critical Care Time Critical Care Time Critical Care Time: Yes <DAT Sanchez Last Filed: 09/14/22 01:36> Total Critical Care Time: 45 <DAT Sanchez Last Filed: 09/14/22 01:36> Attestation: I have personally provided critical care time exclusive of time spent on separately billable procedures. Time includes review of laboratory data, radiology results, discussion with consultants, and monitoring for potential decompensation. Interventions were performed as documented. <DAT Sanchez Last Filed: 09/14/22 01:36> Discharge Plan Discharge Clinical Impression: Dental caries, Dental abscess, Cellulitis of face <Jose A Allen - Last Filed: 09/13/22 15:01> Patient Disposition: Admitted As Inpatient <Jose A Allen - Last Filed: 09/13/22 15:01>
[2022-09-13 15:54] LABS: MANUAL DIFF FLAG NO
[2022-09-13 16:11] LABS: Basophils Percent Auto 0.3 % (0-2); Eosinophils Absolute Auto 0.1 X10*3/uL (0.0-0.4); Hematocrit 42.5 % (42.0-52.0); Hemoglobin 14.8 g/dl (14.0-18.0); Imm Gran Abs Auto 0.07 X10*3/uL (0.00-0.03); Imm Gran Pct Auto 0.6 % (0.0-0.4); Lymphocytes Absolute Auto 2.5 X10*3/uL (1.2-4.9); Lymphocytes Percent Auto 20.3 % (20-40); Mean Corpuscular HGB Conc 34.8 g/dl (31.0-36.0); Mean Corpuscular Hemoglobin 30.2 pg (27.0-33.0); Mean Corpuscular Volume 86.7 fL (80.0-98.0); Mean Platelet Volume 9.2 fL (9.4-12.4); Monocytes Absolute Auto 0.9 X10*3/uL (0.1-1.2); Monocytes Percent Auto 7.3 % (2-11); Neutrophils Absolute Auto 8.5 x10*3/uL (2.0-8.3); Neutrophils Percent Auto 70.5 % (45-73); Platelet Count 205 X10*3/uL (160-400); Red Cell Distribution Width 12.9 % (11.0-16.0)
[2022-09-13 16:26] LABS: Anion Gap 16 (12-20); Blood Urea Nitrogen 8 mg/dL (9-16); Calcium 9.5 mg/dL (8.4-10.2); Carbon Dioxide 29 mmol/L (22-29); Chloride 101 mmol/L (96-108); Creatinine Clr Calc Pharmacy 171.1; Estimated Glomerular Filt Rate > 60; Glucose Random 119 mg/dL (60-115); Potassium 4.2 mmol/L (3.3-5.1); Sodium 142 mmol/L (135-145)
[2022-09-13 20:44] VITALS: BP 139/84; PULSE 81; RESP 20; TEMP 37.4; O2SAT 96
[2022-09-13] MEDS: Ketorolac Tromethamine 30 MG/ML VIAL IVPUSH (20:55)
[2022-09-13] MEDS: Clindamycin Phosphate/D5W 600 MG/50 ML PIGGYBACK 100 MG IV (21:01)
[2022-09-13 21:34] LABS: Lactic Acid 3.6 mmol/L (0.5-2.0)
[2022-09-13] MEDS: iohexoL 350 MG/ML 100 ML INFUS..BTL IV (22:09)
--- NOTE | 2022-09-13 22:36 | PC.NURSE ---
pt A&O X4 RESTING QUIETLY STS PAIN IS NOW 0/10 AFTER TORADOL, 3L 0.9%ns INFUSING VIA 20G IN LEFT ac- PENDING IMAGING RESULTS.WCTM
[2022-09-13 22:57] LABS: Reflex Lactate? Lactic Acid Added
[2022-09-14 00:02] VITALS: BP 137/74; PULSE 74; RESP 20; O2SAT 98
[2022-09-14 00:59] LABS: ~Lactic Acid-LAB USE ONLY 2.9 mmol/L (0.5-2.0)
[2022-09-14 02:12] LABS: Reflex Lactate? 2 Y
[2022-09-14 03:00] VITALS: BP 129/76; PULSE 73; RESP 16; TEMP 37.3; O2SAT 97
--- NOTE | 2022-09-14 03:05 | MHC.EDTECH ---
PT LACTIC ACID DRAWN AND SENT TO LAB ,VITALS SIGN TAKEN ,PT REFUSED TO CHANGE INTO HOSPITAL ATTIRE ,MIKALA BOATENG IS AWARE .
[2022-09-14] MEDS: Lidocaine HCl 2%/Epi 1:100,000 20 ML VIAL INFILTRATI (03:17)
[2022-09-14 03:32] LABS: ~Lactic Acid-LAB USE ONLY 2.2 mmol/L (0.5-2.0)
[2022-09-14 04:10] VITALS: BP 120/54; PULSE 72; RESP 16; TEMP 36.8; O2SAT 95
--- NOTE | 2022-09-14 05:31 | P.HPHOSP_ITS ---
History of Present Illness Date of Service: 09/14/22 Chief Complaint: Facial swelling This is a 32-year-old male with pertinent history of qny-uthvwcx-tulcmkxen diabetes mellitus, opioid use disorder on suboxone who presents to the emergency department for evaluation of right-sided facial swelling. Patient states it started about 2 days prior to presentation and has gotten worse over time. It is associated with redness and pain. Admits poor dentition and states it started off with a toothache. No difficulty breathing or swallowing. No similar complaints in the past. Patient states he has been clean for 2 years. Noncompliant with metformin. Does admit occasional fevers and chills. Denies nausea, vomiting, chest discomfort, palpitations, shortness of breath, abdominal pain, changes in urinary or bowel habits. in the emergency department, CT with 1 cm abscess along the right mandibular body. Patient met SIRS criteria with white count and tachypnea Review of Systems Constitutional: Constitutional: Reports chills and Reports fever(s) ENT: Reports facial pain Cardiovascular: Cardiovascular: Reports no additional cardiovascular complaints Respiratory: Respiratory: Reports no additional respiratory complaints Gastrointestinal: Gastrointestinal: Reports no additional gastrointestinal complaints Genitourinary: Genitourinary: Reports no additional male genitourinary complaints [facility] Medical History Diabetes mellitus No known health problems Opioid use disorder Functional capacity: independent ambulation Pertinent family history: no family history of CAD Social History Advance Directives: No Advance Directives Information Provided: No Meds Allergies Allergy/AdvReac Type Severity Reaction Status Date / Time No Known Allergies Allergy Verified 09/13/22 14:57 [No Known Allergies*] Physical Exam Vital Signs and Narrative: Vital Signs: Last Vital Signs Temp 98.3 F 09/14/22 04:10 Pulse 72 09/14/22 04:10 Resp 16 09/14/22 04:10 BP 120/54 L 09/14/22 04:10 Pulse Ox 95 09/14/22 04:10 O2 Del Method 09/14/22 04:10 BMI result Body Mass Index 35.7 Middle-aged male lying in bed in no distress Right-sided facial swelling and erythema with tenderness Regular rate and rhythm, S1-S2 heard Regular breath sounds bilaterally, no wheezing or crackles appreciated Abdomen soft nontender, no guarding, no rigidity Patient is awake, alert and oriented to self, place, time and person ; no focal motor deficit Psych: Normal mood No pedal edema Results Labs 09/13/22 15:46 09/13/22 15:46 Labs: Laboratory Results - last 24 hr 09/13/22 09/13/22 09/13/22 15:46 15:46 20:50 MCV 86.7 MCH 30.2 MCHC 34.8 RDW 12.9 Plt Count 205 MPV 9.2 L Immature Gran % (Auto) 0.6 H Neut % (Auto) 70.5 Lymph % (Auto) 20.3 [place] % (Auto) 7.3 Eos % (Auto) 1.0 Baso % (Auto) 0.3 Lymph # (Auto) 2.5 [place] # (Auto) 0.9 Eos # (Auto) 0.1 Baso # (Auto) 0.0 Abs Immat Gran (auto) 0.07 H Absolute Neuts (auto) 8.5 H Absolute Nucleated RBC 0.000 Nucleated RBC % (auto) 0.0 Anion Gap 16 Estim Creat Clear Calc 171.1 Estimated GFR > 60 Random Glucose 119 H Lactic Acid 3.6 H* Lactic Acid F/U @ 2Hr Lactic Acid F/U @ 4Hr Calcium 9.5 D 09/14/22 09/14/22 00:06 03:04 MCV MCH MCHC RDW Plt Count MPV Immature Gran % (Auto) Neut % (Auto) Lymph % (Auto) [place] % (Auto) Eos % (Auto) Baso % (Auto) Lymph # (Auto) [place] # (Auto) Eos # (Auto) Baso # (Auto) Abs Immat Gran (auto) Absolute Neuts (auto) Absolute Nucleated RBC Nucleated RBC % (auto) Anion Gap Estim Creat Clear Calc Estimated GFR Random Glucose Lactic Acid Lactic Acid F/U @ 2Hr 2.9 H* Lactic Acid F/U @ 4Hr 2.2 H* Calcium Imaging Radiologist's Impressions: Impressions Face CT 09/13/22 22:28 IMPRESSION: 1. Multifocal maxillary and mandibular odontogenic disease. Periapical lucencies associated with the mandibular right 2nd premolar and 1st molar. There is an adjacent 1 x 0.3 cm abscess along the outer table of the right mandibular body. Moderate surrounding soft tissue edema throughout the right side of face extending into the right anterior neck. 2. Prominent right upper cervical chain lymphadenopathy, likely reactive in nature. 3. Dehiscence of the cartilaginous nasal septum. Moderate leftward nasal septal deviation. Assessment and Plan (1) Cellulitis of face: Status: Acute Plan This is a 32-year-old male with pertinent history of yrp-kditfqt-gcezqdrfx diabetes mellitus, opioid use disorder on suboxone who presents to the emergency department for evaluation of right-sided facial swelling. #. Sepsis due to right-sided facial cellulitis with right mandibular abscess: Abscess drained in the ER. Resuscitated with IV crystalloids. Initiating empiric IV antibiotics. Blood cultures and lactic acid obtained #. Acute lactic acid due to sepsis. Trended down with fluid resuscitation #. Opioid use disorder on suboxone #. Non- insulin-dependent diabetes mellitus: Hold metformin and initiate Accu- Cheks with sliding scale insulin. A1c pending med rec pending DVT prophylaxis: Lovenox 40mg daily Diabetic diet Full code Admit as inpatient and will require two night minimum hospital stay for IV antibiotics Time Spent With Patient Time: Total time managing care of this patient today ____ minutes. Quality Stroke Does the patient have a stroke diagnosis?: No VTE Prior VTE?: No VTE Risk Level:: Medical - moderate - high VTE Device Contraindication: Treatment Not Indicated VTE Drug Contraindication: N/A - Med Ordered
[2022-09-14 07:19] VITALS: BP 136/76; PULSE 71; RESP 17; TEMP 36.8; O2SAT 96
--- NOTE | 2022-09-14 07:23 | PC.NURSE ---
pt is a/o x 4 adamantly refused to change into hosp garment. no sob/ramírez noted speaks in full sentences. lungs - cta. heart sounds regular. abd soft and non-tender, bx + x 4 quads. no edema noted. amb (i) gait steady. pt aware of plan of care pt is admitted to hosp.
[2022-09-14 07:29] LABS: Glucose, Whole Blood 126 mg/dL (60-115)
[2022-09-14] MEDS: Enoxaparin Sodium 40 MG/0.4 ML SYRINGE SUBCUT (07:34)
[2022-09-14] MEDS: cefEPime HCl 2 GM in 0.9 % Sodium Chloride 50 ML IV (07:34)
[2022-09-14] MEDS: 0.9 % Sodium Chloride Flush 3 ML SYRINGE IVFLUSH ×2 (07:35→14:59)
--- NOTE | 2022-09-14 08:32 | PHA.PROG ---
Admission Date/Time: September 14, 2022 05:32 Indication: skin Weight in k.594 kg Adjusted body weight in Kg: [place] body weight in Kg: Obesity Dosing Indication % IBW: Serum Creatinine - Last 168 Hours 09/13/22 15:46 Creatinine 0.72 Estimated CrCl and GFR - Last 168 Hours 09/13/22 15:46 Estim Creat Clear Calc 171.1 Estimated GFR > 60 Vancomycin Loading Dose: 2000mg x 1 Current Vancomycin Dosing Regimen: 1000mg Q12H Vancomycin Monitoring using AUC goal of 400 - 600 range with trough as surrogate marker: 445mg/L Date and Time for next Vancomycin Level to be drawn: 09/15 @1800 Pharmacist Comments on Vancomycin Plan: Obesity model being used, BMI= 35.7; predicted trough of 12.2mg/L. Will continue to monitor Vancomycin dosing will take advantage of [employer] as a clinical decision support tool that uses Bayesian modeling to calculate individual patient's pharmacokinetic parameters and forecast the patient's drug concentration time course with the target goal AUC 24 range of 400 - 600 mg/L/hr.
--- NOTE | 2022-09-14 09:15 | PHA.MEDREC ---
Pharmacy Consult ? Medication Reconciliation Pharmacy has completed the medication reconciliation. Patient repeatedly states I don't take any medicine at home . When I asked if he takes anything over the counter he says he only takes suboxone . I asked for the dose of suboxone and he said it's 16 . I asked if that's once daily and he refuses to answer. I used claim history for suboxone dosing of 8/2 bid.
[2022-09-14] MEDS: Ampicillin Sodium/Sulbactam Na 3 GM in 0.9 % Sodium Chloride 100 ML IV ×3 (10:25→22:14)
[2022-09-14 11:32] LABS: Glucose, Whole Blood 119 mg/dL (60-115)
--- NOTE | 2022-09-14 12:53 | P.EN_ITS ---
Event Note Date of Service: 09/14/22 Event Note: Day hospitalist update S: facial pain controlled no fever O: Temp Pulse Resp BP Pulse Ox O2 Del Method 98.2 F 71 17 136/76 96 09/14/22 07:19 09/14/22 07:19 09/14/22 07:19 09/14/22 07:19 09/14/22 07:19 09/14/22 07:19 Gen: in no acute distress HEENT: R mandibular swelling/erythema Neck: supple Lungs: clear to auscultation bilaterally Heart: regular rate and rhythm, no murmurs Abd: soft, non-tender, non-distended Ext: no edema Skin: warm/well-perfused Neuro: alert and oriented x3, no focal findings Psych: appropriate affect Laboratory Results WBC 12.0 X10*3/uL (4.8-10.8) H 09/13/22 15:46 RBC 4.90 X10*6/uL (4.60-5.80) 09/13/22 15:46 Hgb 14.8 g/dl (14.0-18.0) 09/13/22 15:46 Hct 42.5 % (42.0-52.0) 09/13/22 15:46 MCV 86.7 fL (80.0-98.0) 09/13/22 15:46 MCH 30.2 pg (27.0-33.0) 09/13/22 15:46 MCHC 34.8 g/dl (31.0-36.0) 09/13/22 15:46 RDW 12.9 % (11.0-16.0) 09/13/22 15:46 Plt Count 205 X10*3/uL (160-400) 09/13/22 15:46 MPV 9.2 fL (9.4-12.4) L 09/13/22 15:46 Immature Gran % (Auto) 0.6 % (0.0-0.4) H 09/13/22 15:46 Neut % (Auto) 70.5 % (45-73) 09/13/22 15:46 Lymph % (Auto) 20.3 % (20-40) 09/13/22 15:46 [place] % (Auto) 7.3 % (2-11) 09/13/22 15:46 Eos % (Auto) 1.0 % (0-4) 09/13/22 15:46 Baso % (Auto) 0.3 % (0-2) 09/13/22 15:46 Lymph # (Auto) 2.5 X10*3/uL (1.2-4.9) 09/13/22 15:46 [place] # (Auto) 0.9 X10*3/uL (0.1-1.2) 09/13/22 15:46 Eos # (Auto) 0.1 X10*3/uL (0.0-0.4) 09/13/22 15:46 Baso # (Auto) 0.0 X10*3/uL (0.0-0.2) 09/13/22 15:46 Abs Immat Gran (auto) 0.07 X10*3/uL (0.00-0.03) H 09/13/22 15:46 Absolute Neuts (auto) 8.5 x10*3/uL (2.0-8.3) H 09/13/22 15:46 Absolute Nucleated RBC 0.000 X10*3/uL (0.0-0.012) 09/13/22 15:46 Nucleated RBC % (auto) 0.0 /100WBC (0.0-0.2) 09/13/22 15:46 Sodium 142 mmol/L (135-145) 09/13/22 15:46 Potassium 4.2 mmol/L (3.3-5.1) D 09/13/22 15:46 Chloride 101 mmol/L (96-108) 09/13/22 15:46 Carbon Dioxide 29 mmol/L (22-29) 09/13/22 15:46 Anion Gap 16 (12-20) 09/13/22 15:46 BUN 8 mg/dL (9-16) L 09/13/22 15:46 Creatinine 0.72 mg/dL (0.5-1.4) 09/13/22 15:46 Estim Creat Clear Calc 171.1 09/13/22 15:46 Estimated GFR > 60 09/13/22 15:46 POC Glucose 119 mg/dL (60-115) H 09/14/22 11:30 Random Glucose 119 mg/dL (60-115) H 09/13/22 15:46 Lactic Acid 3.6 mmol/L (0.5-2.0) H* 09/13/22 20:50 Lactic Acid F/U @ 2Hr 2.9 mmol/L (0.5-2.0) H* 09/14/22 00:06 Lactic Acid F/U @ 4Hr 2.2 mmol/L (0.5-2.0) H* 09/14/22 03:04 Calcium 9.5 mg/dL (8.4-10.2) D 09/13/22 15:[address] 09/13/22 22:28 IMPRESSION: 1. Multifocal maxillary and mandibular odontogenic disease. Periapical lucencies associated with the mandibular right 2nd premolar and 1st molar. There is an adjacent 1 x 0.3 cm abscess along the outer table of the right mandibular body. Moderate surrounding soft tissue edema throughout the right side of face extending into the right anterior neck. 2. Prominent right upper cervical chain lymphadenopathy, likely reactive in nature. 3. Dehiscence of the cartilaginous nasal septum. Moderate leftward nasal septal deviation. A/P: hospital day#1 32yo M with DM2, OUD on Suboxone admitted for severe sepsis due to R sided facial cellulitis due to R dental abscess # severe sepsis due to R sided facial cellulitis due to R dental abscess - start amp/sulbactam 09/14- - I+D done in ED 09/13, 0.5mL pus aspirated, not sent for uclture - lactate improving # DM2 - give jamaal-dose lispro, A1c pending # OUD - Suboxone # VTE ppx: LMWH # dispo: eventually home In my clinical judgment, the patient requires continued inpatient hospitalization for the following reasons: IV ABX for sepsis Time Spent With Patient Time: Total time managing care of this patient today ____ minutes.
[2022-09-14 13:09] LABS: C Reactive Protein 9.95 mg/dL (< or = 0.50); Creatinine Clr Calc Pharmacy 189.5; Estimated Glomerular Filt Rate > 60
[2022-09-14 13:21] LABS: COVID-19 Test Negative (Negative); IDNOW Serial# 16C4AD1C
[2022-09-14 14:01] LABS: Estimated Average Glucose 148 mg/dL; Hemoglobin A1c % 6.8 %
[2022-09-14 16:42] LABS: Glucose, Whole Blood 126 mg/dL (60-115)
[2022-09-14 16:48] VITALS: BP 111/64; PULSE 64; RESP 16; O2SAT 96
[2022-09-14] MEDS: vancomycin HCL 1,000 MG in 0.9 % Sodium Chloride 250 ML 270 MG IV (19:43)
--- NOTE | 2022-09-14 20:54 | PC.NURSE ---
report given to ED MIKALA Andrade
[2022-09-14 22:15] VITALS: BP 124/35; PULSE 64; RESP 18; TEMP 37.3; O2SAT 93
[2022-09-14] MEDS: Buprenorphine/Naloxone 8/2 mg FILM 1 FILM SUBLINGUAL (22:17)
[2022-09-14 22:23] LABS: Glucose, Whole Blood 145 mg/dL (60-115)
--- NOTE | 2022-09-14 23:08 | PC.NURSE ---
[place]. [place] [facility] [place] Pt. is ambulatory and independent. Facial swelling noted around the lower jaw d/t abscess. Pt. reports no pain at this time. Pt. medicated with Abx per SEP and is resting comfortably watching TV. Will continue to monitor.
[2022-09-15] MEDS: Ampicillin Sodium/Sulbactam Na 3 GM in 0.9 % Sodium Chloride 100 ML IV ×2 (03:33→10:02)
--- NOTE | 2022-09-15 03:42 | PC.NURSE ---
Pt. woke briefly for medication administration. Pt. right back to sleep, no distress noted. Respirations even and unlabored. Will continue to monitor.
[2022-09-15 05:44] VITALS: BP 127/61; PULSE 68; RESP 16; TEMP 36.7; O2SAT 96
[2022-09-15 06:10] LABS: MANUAL DIFF FLAG NO
[2022-09-15 06:20] LABS: Basophils Percent Auto 0.4 % (0-2); Eosinophils Absolute Auto 0.1 X10*3/uL (0.0-0.4); Eosinophils Percent Auto 1.8 % (0-4); Hematocrit 38.4 % (42.0-52.0); Hemoglobin 13.3 g/dl (14.0-18.0); Imm Gran Abs Auto 0.07 X10*3/uL (0.00-0.03); Lymphocytes Absolute Auto 2.2 X10*3/uL (1.2-4.9); Lymphocytes Percent Auto 30.7 % (20-40); Mean Corpuscular HGB Conc 34.6 g/dl (31.0-36.0); Mean Corpuscular Volume 86.7 fL (80.0-98.0); Mean Platelet Volume 9.1 fL (9.4-12.4); Monocytes Absolute Auto 0.5 X10*3/uL (0.1-1.2); Neutrophils Absolute Auto 4.3 x10*3/uL (2.0-8.3); Neutrophils Percent Auto 59.1 % (45-73); Platelet Count 182 X10*3/uL (160-400); Red Blood Count 4.43 X10*6/uL (4.60-5.80); Red Cell Distribution Width 12.6 % (11.0-16.0); White Blood Count 7.2 X10*3/uL (4.8-10.8)
[2022-09-15 06:42] LABS: Creatinine Clr Calc Pharmacy 175.9; Estimated Glomerular Filt Rate > 60
[2022-09-15 06:43] LABS: Anion Gap 14 (12-20); Blood Urea Nitrogen 11 mg/dL (9-16); Calcium 8.6 mg/dL (8.4-10.2); Carbon Dioxide 26 mmol/L (22-29); Chloride 104 mmol/L (96-108); Creatinine Clr Calc Pharmacy 178.5; Estimated Glomerular Filt Rate > 60; Glucose Random 135 mg/dL (60-115); Sodium 140 mmol/L (135-145)
[2022-09-15 07:26] LABS: Glucose, Whole Blood 149 mg/dL (60-115)
[2022-09-15] MEDS: vancomycin HCL 1,000 MG in 0.9 % Sodium Chloride 250 ML 270 MG IV (07:34)
[2022-09-15] MEDS: Enoxaparin Sodium 40 MG/0.4 ML SYRINGE SUBCUT (07:35)
--- NOTE | 2022-09-15 07:42 | HE.PHANOTE ---
RE IRMA TROUGH DUE AT 1800 YAMIL
[2022-09-15] MEDS: Buprenorphine/Naloxone 8/2 mg FILM 1 FILM SUBLINGUAL (09:51)
[2022-09-15] MEDS: 0.9 % Sodium Chloride Flush 3 ML SYRINGE IVFLUSH (09:51)
--- NOTE | 2022-09-15 11:18 | PC.NURSE ---
Patient watching tv swelling to face noted AOx 4 no distress noted patient awaiting dispo will CTM
[2022-09-15 12:49] LABS: Glucose, Whole Blood 169 mg/dL (60-115)
--- NOTE | 2022-09-15 12:50 | P.DS_ITS ---
DS: Providers Provider Date of Service: 09/15/22 Date of admission: 09/14/22 05:32 Date of discharge: 09/15/22 Primary care physician: None Physician Attending physician on admission: Brayan Varela Attending physician on discharge: Mohan Hernandez Discharging clinician: Marilyn Milligan DS: Diagnosis Discharge Diagnosis (1) Cellulitis of face: Status: Acute DS: Summary Hospital Course Hospital Course: HPI on admission by Dr. Varela 09/14/22: This is a 32-year-old male with pertinent history of [id number]-driaphjju diabetes mellitus, opioid use disorder on suboxone who presents to the emergency department for evaluation of right-sided facial swelling.? Patient states it started about 2 days prior to presentation and has gotten worse over time.? It is associated with redness and pain.? Admits poor dentition and states it started off with a toothache.? No difficulty breathing or swallowing.? No similar complaints in the past.? Patient states he has been clean for 2 years.? Noncompliant with metformin.? Does admit occasional fevers and chills.? Denies nausea, vomiting, chest discomfort, palpitations, shortness of breath, abdominal pain, changes in urinary or bowel habits. ?in the emergency department, CT with 1 cm abscess along the right mandibular body.? Patient met SIRS criteria with white count and tachypnea Hospital Course: Hospital course uneventful. Pt admitted with severe sepsis that was present in the ED related to dental abscess following I&D of small right mandibular dental abscess noted on facial bones CT. Lactic acid trended down with IV fluids. Vitals signs remained normal following admission. WBC trended down to 7.2. He was treated with vancomycin and unasyn for dental abscess and facial cellulitis. Swelling and redness of the right face has improved significantly and patient has been eating, drinking, swallowing without difficulty. No adenopathy palpated on day of discharge. He has getting his suboxone and has not required any a dditional analgesia. Pt will be discharge on PO augmentin and doxycycline BID x5 days. Discussed he needs to follow up with a dentist as soon as possible. Follow up with PCP. Status at Discharge Functional status at discharge: independent ambulation Overall status at discharge: patient is progressing back to baseline Time Spent with Patient Time attestation: Total time managing care of this patient today ____ minutes. Discharge coordination time: Greater than 30 minutes Quality: Safe Use of Opioids Does Pt have an Active Cancer Diagnosis on the Problem List?: No Quality: Stroke Does the patient have a stroke diagnosis?: No Physical Exam Vital Signs: Vital Signs: Last Vital Signs Temp 98.0 F 09/15/22 05:44 Pulse 68 09/15/22 05:44 Resp 16 09/15/22 05:44 BP 127/61 09/15/22 05:44 Pulse Ox 96 09/15/22 05:44 O2 Del Method 09/15/22 05:44 BMI result Body Mass Index 35.7 Constitutional - Awake and Alert, No apparent distress Eyes - PERRLA, EOMI Neck: No cervical adenopathy or nuchal rigidity Cardiovascular - S1S2, RRR, No edema Respiratory - Normal lung expansion, Normal respiratory effort, No respiratory distress, CTA bilaterally Gastrointestinal - NT / ND; +BS; No rebound or guarding Extremities - no calf tenderness bilaterally, no swelling Musculoskeletal - Normal inspection, normal ROM. Patient able to fully open and close jaw Skin - Warm/Dry. Mild swelling of the lower right jaw with mild erythema Neurological - Alert & oriented x3 Psychological - Appropriate affect DS: Data Data Completed and Pending Labs on day of discharge: Laboratory Results - last 24 hr 09/14/22 09/14/22 09/14/22 12:48 12:48 12:48 WBC RBC Hgb Hct MCV MCH MCHC RDW Plt Count MPV Immature Gran % (Auto) Neut % (Auto) Lymph % (Auto) Sterling % (Auto) Eos % (Auto) Baso % (Auto) Lymph # (Auto) Sterling # (Auto) Eos # (Auto) Baso # (Auto) Abs Immat Gran (auto) Absolute Neuts (auto) Absolute Nucleated RBC Nucleated RBC % (auto) Sodium Potassium Chloride Carbon Dioxide Anion Gap BUN Creatinine 0.65 Estim Creat Clear Calc 189.5 Estimated GFR > 60 POC Glucose Random Glucose Estimat Average Glucose 148 Hemoglobin A1c % 6.8 Calcium C-Reactive Protein 9.95 H COVID-19 (G[facility]I) COVID-19 Clin Com 09/14/22 09/14/22 09/14/22 12:48 16:36 22:17 WBC RBC Hgb Hct MCV MCH MCHC RDW Plt Count MPV Immature Gran % (Auto) Neut % (Auto) Lymph % (Auto) Sterling % (Auto) Eos % (Auto) Baso % (Auto) Lymph # (Auto) Sterling # (Auto) Eos # (Auto) Baso # (Auto) Abs Immat Gran (auto) Absolute Neuts (auto) Absolute Nucleated RBC Nucleated RBC % (auto) Sodium Potassium Chloride Carbon Dioxide Anion Gap BUN Creatinine Estim Creat Clear Calc Estimated GFR POC Glucose 126 H 145 H Random Glucose Estimat Average Glucose Hemoglobin A1c % Calcium C-Reactive Protein COVID-19 ([facility]) Negative COVID-19 Clin Com See Note 09/15/22 09/15/22 09/15/22 06:03 06:03 06:03 WBC 7.2 RBC 4.43 L Hgb 13.3 L Hct 38.4 L MCV 86.7 MCH 30.0 MCHC 34.6 RDW 12.6 Plt Count 182 MPV 9.1 L Immature Gran % (Auto) 1.0 H Neut % (Auto) 59.1 Lymph % (Auto) 30.7 Sterling % (Auto) 7.0 Eos % (Auto) 1.8 Baso % (Auto) 0.4 Lymph # (Auto) 2.2 Sterling # (Auto) 0.5 Eos # (Auto) 0.1 Baso # (Auto) 0.0 Abs Immat Gran (auto) 0.07 H Absolute Neuts (auto) 4.3 Absolute Nucleated RBC 0.000 Nucleated RBC % (auto) 0.0 Sodium 140 Potassium 4.0 Chloride 104 Carbon Dioxide 26 Anion Gap 14 BUN 11 Creatinine 0.69 0.70 Estim Creat Clear Calc 178.5 175.9 Estimated GFR > 60 > 60 POC Glucose Random Glucose 135 H Estimat Average Glucose Hemoglobin A1c % Calcium 8.6 D C-Reactive Protein COVID-19 ([facility]) COVID-19 Clin Com 09/15/22 09/15/22 07:22 12:45 WBC RBC Hgb Hct MCV MCH MCHC RDW Plt Count MPV Immature Gran % (Auto) Neut % (Auto) Lymph % (Auto) Sterling % (Auto) Eos % (Auto) Baso % (Auto) Lymph # (Auto) Sterling # (Auto) Eos # (Auto) Baso # (Auto) Abs Immat Gran (auto) Absolute Neuts (auto) Absolute Nucleated RBC Nucleated RBC % (auto) Sodium Potassium Chloride Carbon Dioxide Anion Gap BUN Creatinine Estim Creat Clear Calc Estimated GFR POC Glucose 149 H 169 H Random Glucose Estimat Average Glucose Hemoglobin A1c % Calcium C-Reactive Protein COVID-19 ([facility]) COVID-19 Clin Com Preliminary micro results at discharge 09/13/22 21:00 Blood Culture - Preliminary Blood - Venous No growth after 24 hours. 09/13/22 20:50 Blood Culture - Preliminary Blood - Venous No growth after 24 hours. Discharge Plan Discharge Anticipated Discharge Date/Time: 09/15/22 10:55 Patient Disposition: Home, Self-Care Discharge Diagnosis: Dental abscess, cellulitis (skin infection) right face, severe sepsis Referrals: Physician,None [Primary Care Provider] - 1 Week Discharge Medications: New amoxicillin-pot clavulanate 875-125 mg tablet 1 tab PO Q12H Qty: 10 0RF Rx Instructions: Take with food doxycycline monohydrate 100 mg capsule 100 mg PO BID Qty: 10 0RF Rx Instructions: Take with food and full glass of water. Do not lay down for 1 hour after taking Continued buprenorphine-naloxone 8-2 mg film 1 strip sublingual BID Discharge Orders: Discharge Order (Routine); Ordered 09/15/22 Ordered By: Marilyn Milligan Activity on Discharge: As tolerated Stand Alone Forms: Patient Portal Discharge page Care Plan Goals: Continue antibiotics for dental abscess and cellulitis of the face Health Concerns: Dental abscess Cellulitis Severe sepsis Diabetes Plan of Treatment: Dental abscess/cellulitis -while in the ED, the abscess on the lower right mandible was drained -your treated with IV antibiotics while in the hospital. Continue Augmentin 875 mg twice daily and doxycycline 100 mg twice daily for 5 days (next dose due around 18:00). Be sure to take these medications with food, full glass of water, do not lay down for at least 1 hour after taking the medication. Complete course of medication even if feeling better -you need to follow-up with a dentist soon. [facility] : [address] [facility] [phone] Diabetes -diabetes is controlled with most recent A1c of 6.8% -follow diabetic diet and follow up with PCP soon Assessment: see above Patient Instructions: Meal Planning with Diabetes Exchanges (DC)
[2022-09-15] MEDS: Insulin Lispro 100 UNIT/ML 3 ML VIAL SUBCUT (13:12)
== END 2022-09-15 13:40 | disposition home or self-care (01) | DRG 720 ==
LOC: HO.ED 09-14 01:37 → HO.EDOVER 09-14 05:36
PROVIDERS: Family Medicine; Nurse Practitioner Family; Physician Assistant; Admitting Provider Student in an Organized Health Care Education/Training Program; Emergency Provider Internal Medicine; Visit Provider Physician Assistant
DX: A41.9 Sepsis, unspecified organism (principal); E11.9 Type 2 diabetes mellitus without complications; K04.7 Periapical abscess without sinus; R65.20 Severe sepsis without septic shock; F11.20 Opioid dependence, uncomplicated; L03.211 Cellulitis of face; Z20.822 Contact with and (suspected) exposure to COVID-19
CPT/HCPCS: 36415; 70487; 80048; 82565; 82947; 83036; 83605; 85025; 86140; 87040; 87635; 99221; 99285; J0295; J0692; J1650; J1885; J3370; Q9967